=== PATIENT | female | born 1995 | race Caucasian/White ===

== ENCOUNTER → 2020-08-16 | Outpatient (CLI) | payer MEDICAID ==
--- NOTE | 2020-08-17 10:37 | US ---
EXAMINATION TYPE: US pelvic complete DATE OF EXAM: 08/16/2020 COMPARISON: NONE CLINICAL HISTORY: Pelvic Pain R10.2. Generalized pelvic pain. Patient states she is on control and has her period every 3 months. TECHNIQUE: Transabdominal (TA). Transabdominal sonographic images of the pelvis were acquired. Date of LMP: 07/20/2011, G0 EXAM MEASUREMENTS: Uterus: 7.5 x 3.8 x 3.1 cm Endometrial Stripe: 0.3 cm Right Ovary: 2.5 x 1.7 x 1.0 cm Left Ovary: 2.8 x 1.4 x 1.1 cm 1. Uterus: Anteverted wnl 2. Endometrium: wnl 3. Right Ovary: wnl 4. Left Ovary: wnl 5. Bilateral Adnexa: wnl 6. Posterior cul-de-sac: no free fluid, peristalsing bowel seen IMPRESSION: No significant abnormality is evident
== END | disposition home or self-care (01) ==
LOC: RADUSWWP 16:12
PROVIDERS: ATTEND Internal Medicine
DX: R10.2 Pelvic and perineal pain (principal)
CPT/HCPCS: 76856